=== PATIENT | female | born 1940 | race Caucasian/White ===

== ENCOUNTER 2016-12-09 23:07 | Observation (INO) ==
[2016-12-10] MEDS ORDERED: ALPRAZolam 0.5 MG TABLET PO ONE (01:47)
[2016-12-10] MEDS ORDERED: ALPRAZolam 0.5 MG TABLET PO PRN (05:27)
--- NOTE | 2016-12-10 05:40 | Internal Med History&Physical ---
Date of Encounter: 12/10/16 Time of Encounter: 05:37 Assessment and Plan (1) Rheumatoid arthritis Current visit: Yes Status: Acute She is on immunosuppressive medications. Qualifiers: Qualified Code(s): M06.9 - Rheumatoid arthritis, unspecified (2) Hypokalemia Current visit: Yes Status: Acute With custom 3.2 at [facility] emergency room. Would recheck potassium and magnesium and replace accordingly. (3) GERD (gastroesophageal reflux disease) Current visit: Yes Status: Acute PPI Qualifiers: Qualified Code(s): K21.9 - Gastro-esophageal reflux disease without esophagitis (4) Atrial fibrillation with rapid ventricular response Current visit: No Status: Acute Ralph-vASC score at least 4 for age being 76, hypertension, and female sex. She also mentioned that she had valvular disease. Patient will be started on photos Lovenox. She will be a candidate for long-term anticoagulation for stroke prophylaxis. She denies history of falls or G.I. bleed. WILL check echocardiogram. Internal Medicine - H&P: HPI Chief complaint: palpitations History of present illness: Ms. Castillo is a 76 year old female who presents to the emergency room at [facility] with a complete of palpitations. At approximately 6 PM patient started noticing palpitations which she describes as rapid and irregular. These palpitations lasted for approximately 3 hours until 9 PM without resolution so she went to emergency room for further management. She had similar episodes before but will last for shorter durations. She was found in [facility] emergency room to be atrial fibrillation with rapid ventricular response. She was given a dose of Cardizem after which she had spontaneous samaritan of sinus rhythm. Patient denies any chest pain. No recent febrile illness. No diarrhea vomiting. Mentioned that she had the named program about 4 years ago showed no significant blockages. Patient has a history of hypertension is 76 years old. She mentioned also that she has valvular disease to valves are leaky. Denies history of falls or prior G.I. bleeding Past Med Surg Social Fam HX - Past Medical History Medical history: arthritis, coronary artery disease, fibromyalgia, GERD, hyperlipidemia, hypertension, osteoporosis, RA, valvular heart disease, other Psychiatric history: anxiety - Past Surgical History Surgical History: orthopedic, other - Social History Smoking Status: Never smoker Smokeless Tobacco Status: No Alcohol use: none Drug use: none - Family History Mother Hx Family Cardiac Disorders: Yes Hx Family Cancer: Yes (vaginal) Internal Medicine - H&P: Meds ALPRAZolam [Xanax 0.5 MG Tablet] 0.5 mg PO BID PRN 11/16/14 [History] Aspirin Enteric Coated [Aspirin EC] 81 mg PO DAILY 11/16/14 [History] Cyanocobalamin (Vitamin B-12) [Vitamin B-12] 1,000 mcg PO HS 11/16/14 [History] Etanercept [Enbrel] 50 mg SQ QWEEK 11/16/14 [History] Folic Acid 1 mg PO DAILY 11/16/14 [History] Hydrochlorothiazide 25 mg PO DAILY 11/16/14 [History] Ibuprofen [Motrin] 800 mg PO Q8HR PRN 11/16/14 [History] Lisinopril [Zestril] 20 mg PO DAILY 11/16/14 [History] Methotrexate [Otrexup] 15 mg PO QWEEK 11/16/14 [History] Metoprolol XL (24 HR) Succ [Toprol XL] 50 mg PO HS 11/16/14 [History] Multivitamin [Multi-Day Vitamins] 1 each PO DAILY 11/16/14 [History] Pantoprazole Sodium 40 mg PO HS 11/16/14 [History] Pravastatin Sodium [Pravachol] 40 mg PO HS 11/16/14 [History] 3 Allergy/AdvReac Type Severity Reaction Status Date / Time cod liver oil Allergy Unconscious Verified 12/09/16 22:02 hydrocodone Allergy Hallucinati Verified 12/09/16 22:02 ng Penicillins [PCN] Allergy Hives Verified 12/09/16 22:02 Sulfa (Sulfonamide Allergy See Verified 12/09/16 22:02 Antibiotics) Comments Erythromycin Base AdvReac Nausea Verified 12/09/16 22:02 All Systems PM: A 10-system review of systems was performed and is negative for pertinent findings except as documented above in the HPI. Review of systems: 10 point review of systems is negative except for HPI - Constitutional Vitals: Temp Pulse Resp BP Pulse Ox 97.6 F 63 16 100/67 96 12/10/16 03:19 12/10/16 03:19 12/10/16 03:19 12/10/16 03:19 12/10/16 03:19 Exam: Gen.: patient is alert oriented times 3 cardiac: normal S1 S2 no additional sounds or murmurs chest: no active wheezing or bronchial breathing abdomen soft nontender nondistended normal bowel sounds lower extremity no swelling. Neuro: no new focal deficits
[2016-12-10 05:47] LABS: Basophils # 0.1 K/mcL (0.0-0.2); Basophils % 1.1 %; Eosinophils # 0.2 K/mcL (0.0-0.6); Eosinophils % 3.4 %; Hematocrit 38.9 % (35.3-44.9); Hemoglobin 12.9 g/dL (11.5-15.4); Immature Granulocytes % 0.1 % (0-4); Lymphocytes # 2.4 K/mcL (0.6-4.6); Lymphocytes % 34.7 %; Mean Corpuscular HGB Conc 33.2 g/dL (31.6-35.5); Mean Corpuscular Volume 90.5 fL (83.0-100.0); Mean Platelet Volume 9.6 fL (9.4-12.4); Monocytes # 0.7 K/mcL (0.0-1.3); Neutrophils # 3.5 K/mcL (1.6-8.9); Platelet Count 162 K/mcL (140-400); Red Cell Distribution Width 14.1 % (11.5-14.5); Segmented Neutrophils % 50.7 %
[2016-12-10] MEDS ORDERED: *HR* Enoxaparin 60 MG/0.6 ML SYRINGE SQ SCH (06:00)
[2016-12-10 06:23] LABS: Thyroid Stimulating Hormone 6.388 mcIU/mL (0.350-4.840)
--- NOTE | 2016-12-10 08:33 | Discharge Summary ---
Date of Encounter: 12/10/16 Time of Encounter: 07:40 - Discharge Diagnosis (1) Atrial fibrillation with rapid ventricular response Priority: Primary Status: Acute Comments: New onset a-fib RVR. Pt converted with 15mg Cardizem bolus in the ED prior to arrival. Apical is regular, S1S2 heard. Monitor NSR. Pt denies symptoms other than feeling her heart racing. She states that she has had this in the past, but it stopped and she has never had a diagnosis. Echo with LVEF 60-65%, mild LVDD mild-moderate AR and TR. Pt will be seen by cardiology and stress test in a.m. Starting on Eliquis tonight. Pt was given Lovenox 60mg SQ BID in hospital. Will send pt home on Eliquis. Pt will need to follow up with PCP. (2) Rheumatoid arthritis Priority: Secondary Status: Chronic Comments: Pt is on Methotrexate and Enbrel. Follow with PCP and specialist as scheduled. Qualifiers: Rheumatoid arthritis location: unspecified site Rheumatoid factor presence : unspecified presence Qualified Code(s): M06.9 - Rheumatoid arthritis, unspecified (3) Hypokalemia Priority: Secondary Status: Acute Comments: 3.3 on arrival. Treated with 20meq Potassium Chloride BID. (4) GERD (gastroesophageal reflux disease) Priority: Secondary Status: Chronic Comments: Chronic. Continue Pantoprazole at discharge. Qualifiers: Esophagitis presence: esophagitis presence not specified Qualified Code(s) : K21.9 - Gastro-esophageal reflux disease without esophagitis (5) Elevated TSH Priority: Secondary Status: Acute Comments: Mildly elevated at 6.388. Pt has no history of thyroid disease. She does have RA , which could alter lab values. Recommend follow up with PCP. (6) DVT prophylaxis Priority: Secondary Status: Acute Comments: Pt is receiving Lovenox for anticoagulation for paroxysmal a-fib. - Discharge Medications Home Medications: ALPRAZolam [Xanax 0.5 MG Tablet] 0.5 mg PO BID PRN 11/16/14 [History] Aspirin Enteric Coated [Aspirin EC] 81 mg PO DAILY 11/16/14 [History] Cyanocobalamin (Vitamin B-12) [Vitamin B-12] 1,000 mcg PO HS 11/16/14 [History] Etanercept [Enbrel] 50 mg SQ QWEEK 11/16/14 [History] Folic Acid 1 mg PO DAILY 11/16/14 [History] Hydrochlorothiazide 25 mg PO DAILY 11/16/14 [History] Ibuprofen [Motrin] 800 mg PO Q8HR PRN 11/16/14 [History] Lisinopril [Zestril] 20 mg PO DAILY 11/16/14 [History] Methotrexate [Otrexup] 15 mg PO QWEEK 11/16/14 [History] Metoprolol XL (24 HR) Succ [Toprol XL] 50 mg PO HS 11/16/14 [History] Multivitamin [Multi-Day Vitamins] 1 each PO DAILY 11/16/14 [History] Pantoprazole Sodium 40 mg PO HS 11/16/14 [History] Pravastatin Sodium [Pravachol] 40 mg PO HS 11/16/14 [History] Allergies/Adverse Reactions: 3 Allergy/AdvReac Type Severity Reaction Status Date / Time cod liver oil Allergy Unconscious Verified 12/09/16 22:02 hydrocodone Allergy Hallucinati Verified 12/09/16 22:02 ng Penicillins [PCN] Allergy Hives Verified 12/09/16 22:02 Sulfa (Sulfonamide Allergy See Verified 12/09/16 22:02 Antibiotics) Comments Erythromycin Base AdvReac Nausea Verified 12/09/16 22:02 Procedures/tests Complete & Pending: Procedures Performed prior 72 hours Category Date Time Status EV echocardiogram Routine Y 12/10/16 05:43 Ordered Date of admission: 12/10/16 00:42 Primary care physician: Froylan Lubin MD Discharging clinician: Cici Paul Anticipated date of discharge: 12/10/16 - Patient Status Disposition: Home, Self-Care Condition: Good Functional capacity at discharge: independent ambulation Overall status at discharge: patient is back to baseline - Discharge Instructions Follow Up With: Froylan Lubin MD [Primary Care Provider] - 12/15/16 2:30 pm Additional Instructions: Follow up with your PCP in the next 7-10 days for a follow up visit. REturn to the ER if your symptoms return or worsen, or for any other problems or concerns. Take your medications as directed and continue your other home medications. Return to your normal activities as tolerated. - Diet and Activity Activity: increase activity as tolerated Diet: advance to your usual diet Hospital course: Ms. Castillo is a 76 year old female - Time Spent with Patient Total time spent providing and/or coordinating discharge services: - Constitutional Vitals: Temp Pulse Resp BP Pulse Ox 98 F 58 13 124/71 97 12/10/16 07:23 12/10/16 07:23 12/10/16 07:23 12/10/16 07:23 12/10/16 07:23 General appearance: Present: cooperative, A&O X 3, pleasant, no acute distress, answers questions appropriately - Head Head exam: Present: atraumatic, normal inspection, normocephalic - Eye Eye exam: Present: conjuntiva pink, sclera anicteric - Neck Neck exam general surgery: Present: supple, trachea midline. Absent: lymphadenopathy, tenderness - Expanded Neck Exam Neck exam: Absent: carotid bruit, tenderness, thyroid mass - Respiratory Respiratory exam: Present: CTAB. Absent: accessory muscle use, rales, rhonchi, wheezes - Cardiovascular Cardiovascular exam: Present: RRR, +S1, +S2. Absent: diastolic murmur, gallop, rubs, systolic murmur - GI/Abdominal GI/Abdominal exam: Present: normal bowel sounds, soft, no peritoneal signs. Absent: distended, hepatomegaly, tenderness - Extremities Exam Extremities exam: Present: normal inspection, warm, radial pulses palpable and symmetrical. Absent: calf tenderness, cyanotic, pedal edema, tenderness - Neurological Exam Neurological exam: Present: alert, oriented X3, no focal deficits. Absent: facial droop, speech deficit - Skin Skin exam: Present: dry, intact, normal color, warm. Absent: rash
[2016-12-10] MEDS: Aspirin Enteric Coated 81 MG Tablet PO SCH (09:35)
[2016-12-10] MEDS: Folic Acid 1 MG TABLET PO SCH (09:35)
--- NOTE | 2016-12-10 15:10 | Cardiology Consult Note ---
<Zahida Jose - Last Filed: 12/10/16 15:28> Date of Encounter: 12/10/16 Time of Encounter: 14:00 Assessment and Plan (1) Paroxysmal a-fib Status: Acute Per cardiology: -No known history of a.fib. -Reprots intermittent high HR for years. -A.fib RVR on arrival, given cardizem bolus and converted to SR. -Telemetry with average HR 62, sinus rhythm. -On toprol 50mg daily. -Echo with LVEF 60-65%, mild diastolic dysfunction, mild-moderate AR, mild- moderate TR, all crawford with normal motion. -[id number] score 4 (age, HTN, female). Recommend terminal gauger supervisor anticoagulation. Patient agreeable to anticoagulation. Denies active bleeding or blood loss. -Reports snoring. Denies previous sleep apnea studies. -Can consider outpatient follow up with electrophysiology, Dr.John Sullivan, for possible further interventions for atrial fibrillation. -Will check overnight trending pulse ox. -Will check non--exercise nuclear stress test in am for possible use of anti- arrhythmics (known previous mild CAD). NPO after midnight. -Per discussion with , will start eliquis 5mg po BID. Will start tonight. Eliquis being jordan checked. -Will continue to monitor. Discussion w patient/family: The assessment and plan as outlined above was discussed with the patient who expressed understanding and agreement. All questions were answered. Thank you for involving us in the care of your patient. Please call with any questions. Discussed and reviewed with . History of Present Illness Consult date: 12/10/16 Requesting physician: Cici Paul Consult reason: new atrial fibrillation Chief complaint: racing heart rate History of present illness: Ms. Castillo is a 76 year old female with a relevant past medical history of HTN, mild CAD, sinus tachycardia, RA, and hyperlipidemia. Patient presented to [facility] with complaints of rapid heart rate. Patient states she has had intermittent tachycardia for years, however patient states she was always told it was sinus tachycardia. Patient states her typically episodes of high heart rates last for a few minutes and then subside, however this episode lasted a few hours. Upon presentation to [place], she was not to be in atrial fibrillation with RVR. Patient was given IV cardizem and converted to SR. Patient was admitted to [facility]. Patient denies palpitations overnight. Patient denies chest pain. Patient denies shortness of breath or fatigue. Patient admits to snoring and awakening at night. Past Med Surg Social Fam HX - Past Medical History Attestation: Yes The following information was validated with the patient. Source: patient, old records reviewed Medical history: arthritis, coronary artery disease, fibromyalgia, GERD, hyperlipidemia, hypertension, osteoporosis, RA, valvular heart disease, other Psychiatric history: anxiety - Past Surgical History Surgical History: orthopedic, other - Social History Smoking Status: Never smoker Smokeless Tobacco Status: No Alcohol use: none Drug use: none - Family History Mother Hx Family Cardiac Disorders: Yes Hx Family Cancer: Yes (vaginal) Medications and Allergies ALPRAZolam [Xanax 0.5 MG Tablet] 0.5 mg PO BID PRN 11/16/14 [History] Aspirin Enteric Coated [Aspirin EC] 81 mg PO DAILY 11/16/14 [History] Cyanocobalamin (Vitamin B-12) [Vitamin B-12] 1,000 mcg PO HS 11/16/14 [History] Etanercept [Enbrel] 50 mg SQ QWEEK 11/16/14 [History] Folic Acid 1 mg PO DAILY 11/16/14 [History] Hydrochlorothiazide 25 mg PO DAILY 11/16/14 [History] Ibuprofen [Motrin] 800 mg PO Q8HR PRN 11/16/14 [History] Lisinopril [Zestril] 20 mg PO DAILY 11/16/14 [History] Methotrexate [Otrexup] 15 mg PO QWEEK 11/16/14 [History] Metoprolol XL (24 HR) Succ [Toprol XL] 50 mg PO HS 11/16/14 [History] Multivitamin [Multi-Day Vitamins] 1 each PO DAILY 11/16/14 [History] Pantoprazole Sodium 40 mg PO HS 11/16/14 [History] Pravastatin Sodium [Pravachol] 40 mg PO HS 11/16/14 [History] Apixaban [Eliquis] 5 mg PO BID #30 tablet 12/11/16 [Rx] 3 Allergy/AdvReac Type Severity Reaction Status Date / Time cod liver oil Allergy Unconscious Verified 12/09/16 22:02 hydrocodone Allergy Hallucinati Verified 12/09/16 22:02 ng Penicillins [PCN] Allergy Hives Verified 12/09/16 22:02 Sulfa (Sulfonamide Allergy See Verified 12/09/16 22:02 Antibiotics) Comments Erythromycin Base AdvReac Nausea Verified 12/09/16 22:02 All Systems Review: A 10-system review of systems was performed and is negative for pertinent findings except as documented above in the HPI. - Cardiovascular Cardiovascular: as per HPI, rapid heart rate Physical Examination Vital Signs, Last 4 Hours Temp Pulse Resp BP Pulse Ox 12/10/16 11:05 97.7 F 61 18 108/62 97 General: Conversant, No Apparent Distress HEENT: Atraumatic, Normocephaly, Mucus Membranes Moist Neck: No JVD, Normal carotid pulses Cardiac: Reg Rate and Rhythm, Normal S1 and S2, No Murmur Lungs: Normal Breath Sounds, No Wheeze, Rales, Rhonchi Neuro: Alert and responsive, No focal deficits noted Abdomen: Soft, Non-Tender Skin: No rashes noted on visualized skin Musculoskeletal: No Chest Wall Tenderness Extremities: No Clubbing, No Cyanosis, No Edema, Normal Pulses Results 12/10/16 05:35 Lab Results Impressions Echocardiogram 12/10/16 05:43 Impressions: LVEF 60-65%. Normal LV chamber size, wall thickness and function. Mild left ventricular diastolic dysfunction. Normal right ventricular structure and function. Mild-moderate aortic regurgitation. Mild-moderate tricuspid regurgitation. No pulmonary hypertension. Left Ventricular Wall Motion: Rest Echo Findings All wall segments showed normal motion. Findings: Study Quality * Technically adequate exam. ECG Findings * Normal sinus rhythm. Left Ventricle * LVEF 60-65%. * Normal LV chamber size, wall thickness and function. * Mild left ventricular diastolic dysfunction. Right Ventricle * Normal right ventricular structure and function. Left Atrium * Mild to moderately dilated left atrium. Right Atrium * Mildly dilated right atrium. Interatrial Septum * No evidence of PFO by color Doppler. Aortic Valve * Trileaflet aortic valve. * Mild-moderate aortic regurgitation. * No aortic stenosis. Mitral Valve * Normal mitral valve structure and function. * No mitral stenosis. * Trace mitral regurgitation. Tricuspid Valve * Normal tricuspid valve structure. * Mild-moderate tricuspid regurgitation. * No pulmonary hypertension. Pulmonic Valve * Normal pulmonic valve structure and function. * Trace pulmonic regurgitation. Aorta * Normally sized aortic root. Pericardium * The pericardium appears normal. IVC * Normal IVC dimensions and inspiratory collapse. Pulmonary Artery * Normal visualized portions of the main pulmonary artery. Active Medications Alprazolam (Xanax) 0.5 mg PO BID PRN; Protocol PRN Reason: Anxiety Stop: 06/11/17 05:28 Aspirin (Aspirin Ec) 81 mg PO DAILY [facility] Stop: 06/11/17 09:01 Last Admin: 12/10/16 09:35 Dose: 81 mg Cyanocobalamin (Vitamin B12) 1,000 mcg PO HS [facility] Stop: 06/11/17 21:01 Enoxaparin Sodium (Lovenox) 60 mg SQ Q12HCO [facility] PRN Reason: Protocol Stop: 06/11/17 06:01 Last Admin: 12/10/16 05:46 Dose: Not Given Folic Acid (Folic Acid) 1 mg PO DAILY [facility] Stop: 06/11/17 09:01 Last Admin: 12/10/16 09:35 Dose: 1 mg Metoprolol Succinate (Toprol Xl) 50 mg PO HS [facility] Stop: 06/11/17 21:01 Omeprazole (Prilosec) 20 mg PO HS [facility] Stop: 06/11/17 21:01 Potassium Chloride (Potassium Chloride) 20 meq PO BID [facility] Stop: 06/11/17 09:01 Last Admin: 12/10/16 09:35 Dose: 20 meq Simvastatin (Zocor) 20 mg PO HS [facility] Stop: 06/11/17 21:01 Laboratory Tests 12/09/16 12/09/16 12/10/16 21:44 21:44 05:35 Hgb 12.9 D Plt Count 162 Potassium 3.3 L Creatinine 1.09 Troponin I 0.00 TSH 12/10/16 12/10/16 12/10/16 05:35 05:35 10:41 Hgb Plt Count Potassium Creatinine Troponin I 0.01 0.00 TSH 6.388 H - Imaging and Cardiology Chest Xray: report reviewed Stress Test: report reviewed Echo: report reviewed Cardiac cath: report reviewed - EKG Interpretation EKG results cardiology: personally reviewed (ECG reviewed with atrial fibrillation RVR, HR 158.), other (Telemetry reviewed with average HR previous 12 hours noted to be 62, sinus rhythm. PACs noted. 1 three beat run of atrial tachycardia noted.) Consult Discharge Plan - Plan Instructions: Influenza Virus Vaccine (Injection), Atrial Fibrillation (DC) Additional Instructions: Follow up with your PCP in the next 7-10 days for a follow up visit. REturn to the ER if your symptoms return or worsen, or for any other problems or concerns. Take your medications as directed and continue your other home medications. Return to your normal activities as tolerated. Referrals: Froylan Lubin MD [Primary Care Provider] - 12/15/16 2:30 pm Prescriptions: Apixaban [Eliquis] 5 mg PO BID #30 tablet <Montana Hawley - Last Filed: 12/11/16 14:50> Date of Encounter: 12/10/16 Time of Encounter: 17:00 Assessment and Plan Discussion w patient/family: The assessment and plan as outlined above was discussed with the patient and/or family members who expressed understanding and agreement. All questions were answered. Thank you for involving us in the care of your patient. Please call with any questions. History of Present Illness History of present illness: Ms. Castillo is a 76 year old female All Systems Review: A 10-system review of systems was performed and is negative for pertinent findings except as documented above in the HPI. Physical Examination Vital Signs, Last 4 Hours Temp Pulse Resp BP Pulse Ox 12/11/16 11:18 97.9 F 64 16 139/68 98 Results 12/11/16 02:34 12/11/16 02:34 Lab Results 12/10/16 12/11/16 12/11/16 05:35 02:34 02:34 WBC 5.4 Hgb 12.7 Hct 39.8 Plt Count 172 Sodium 139 143 Potassium 3.8 4.3 Chloride 107 110 H Carbon Dioxide 25 28 BUN 13 17 Creatinine 1.01 1.16 H Glucose 100 H 99 Calcium 9.4 9.6 Magnesium 1.9 TSH 6.388 H - Attending Attestation Pt seen and examined independently, chart reviewed, essentially agree with documented findings, my evalutation as follows IMP/Plan 1. A fib with RVR - converted in ER with IV bolus diltiazem, has maintained NSR since admission. Hx papitations on and off for several years, able to document SVT, but no previous A fib. This event longest lasting, was over three hours until she converted with IV diltiazem in ER. She reports is compliant with medications. Long conversation about risks of PAF, in particular stroke risk, agrees to trial of Eliquis. Will monitor heart rhythm overnight with increased activity, stress in AM to rule out ischemic substrate 2. Insomnia; Pt reports very difficult time getting too and staying asleep. Symptoms concerning for undiagnosed SHENG, will obtain screening nocturnal pulse ox tonight on room air.
[2016-12-10] MEDS ORDERED: Cyanocobalamin (B-12) 1,000 MCG TABLET PO SCH (21:00)
[2016-12-10] MEDS ORDERED: Metoprolol XL (24 HR) Succ 50 MG TAB.ER.24H PO SCH (21:00)
[2016-12-10] MEDS: APIXABAN 5 MG TABLET PO SCH (21:15)
[2016-12-11 03:22] LABS: Basophils # 0.1 K/mcL (0.0-0.2); Basophils % 1.1 %; Eosinophils # 0.4 K/mcL (0.0-0.6); Eosinophils % 6.5 %; Hematocrit 39.8 % (35.3-44.9); Hemoglobin 12.7 g/dL (11.5-15.4); Immature Granulocytes % 0.2 % (0-4); Lymphocytes # 2.2 K/mcL (0.6-4.6); Lymphocytes % 40.6 %; Mean Corpuscular HGB Conc 31.9 g/dL (31.6-35.5); Mean Corpuscular Hemoglobin 29.5 pg (28.0-33.3); Mean Corpuscular Volume 92.3 fL (83.0-100.0); Mean Platelet Volume 9.8 fL (9.4-12.4); Monocytes # 0.7 K/mcL (0.0-1.3); Monocytes % 13.8 %; Platelet Count 172 K/mcL (140-400); Red Blood Count 4.31 M/mcL (3.82-4.97); Segmented Neutrophils % 37.8 %
[2016-12-11 03:31] LABS: Calcium 9.6 mg/dL (8.6-10.8); Chol/HDL Ratio 5.3 (0-4.9); Potassium 4.3 mEq/L (3.5-4.5)
[2016-12-11] MEDS ORDERED: Regadenoson 0.4 MG/5 ML SYRINGE IVP ONE (05:41)
[2016-12-11] MEDS ORDERED: 0.9 % Sodium Chloride 1,000 ML IVC SCH (07:30)
[2016-12-11 08:09] LABS: BUN/Creatinine Ratio 13 (6-26); Blood Urea Nitrogen 13 mg/dL (7-20); Calcium 9.4 mg/dL (8.6-10.8); Carbon Dioxide 25 mEq/L (19-29); Chloride 107 mEq/L (98-109); Creatine Kinase 69 Units/L (29-168); Glucose 100 mg/dL (70-99); Magnesium 1.9 mg/dL (1.6-2.6); Osmolality,Calculated 288 (280-300); Potassium 3.8 mEq/L (3.5-4.5); Sodium 139 mEq/L (136-145); eGFR For African Americans > 60 (> 60); eGFR For Non-African Americans 53 (> 60)
[2016-12-11] MEDS: Folic Acid 1 MG TABLET PO SCH (10:07)
[2016-12-11] MEDS: APIXABAN 5 MG TABLET PO SCH (10:07)
[2016-12-11] MEDS: Aspirin Enteric Coated 81 MG Tablet PO SCH (10:07)
--- NOTE | 2016-12-11 11:12 | Nuclear Medicine Stress Report ---
Regadenoson Nuclear Stress Name: Rosio Castillo Date of Study: 12/11/2016 Date: 1940 Ht: 61.0 in Medical Record#: [id number] Age: 76 Wt: 143.0 lb Gender: Female Order #: [id number] Location: [facility] Room: [facility] Supervising Provider: Zahida Jose CNP Reading Physician: Jaleel Lala MD, [facility] Ordering Physician: Cici Paul CNP Stress Technologist: Terrie Boudreaux VENDING STAND SUPERVISOR, [facility] Tailing Machine Operator: Tara Mendoza Indications: Chest Pain Impression: Perfusion imaging was negative for ischemia or infarct. Pharmacologic ECG was non diagnostic for ischemia. Baseline LVH with strain pattern mildly worsened with stress. Patient had no chest pain with stress. Normal hemodynamic response. No arrhythmias noted with stress. Gated EF = >70%. The LV is not dilated. There is no evidence of TID. History: Hypertension Hypercholesteremia Stress Test Summary: Stress Test Type: Pharmacologic Regadenoson 0.4mg/5ml given IV Baseline Information: Initial Heart Rate: 64 Blood Pressure: 136/72 Stress Information: Test Terminated Due to (primary): As per protocol Maximum Blood Pressure: 142/80 Maximum Heart Rate: 99 Percent Maximum Heart Rate Achieved: 73 Double Product: 13768 METS Reached: 10 Symptoms: No chest symptoms Nuclear Summary: SPECT myocardial perfusion imaging using Tc99m Sestamibi given intravenously was performed at rest and following cardiac stress testing. The resting images were obtained following initial dose of 10.2 mCi. Following stress an additional dose of 35.0 mCi was given at peak exercise or 30 seconds post regadenoson infusion. Medication Given: Time Medication Dose Units Route Findings: STUDY QUALITY * STUDY QUALITY Study Quality * Study quality is average. Gated EF > 70% * Gated EF > 70%. Left Ventricle * The left ventricle is not dilated. NORMALS * Normal wall motion. * Normal segmental perfusion in stress. * Normal Segmental Perfusion in rest. TID * No evidence of transient ischemic dilatation. Stress Note * Resting ECG demonstrated normal sinus rhythm, LVH with strain pattern * No baseline arrhythmias were noted. * Pharmacologic stress ECG is non diagnostic for ischemia due to failure to reach target heartrate. * There was LVH with strain pattern mildly worsened mm of } ST . * No chest pain or arrhythmias during stress. Hemodynamic responses * Normal hemodynamic responses to pharmacologic stress. Updated by Jaleel Lala MD, FACC on 12/11/2016 11:00:40 AM electronically signed on 12/11/2016 11:05:38 AM with status of Final
[2016-12-11 11:19] VITALS: BP 139/68
--- NOTE | 2016-12-11 13:40 | Discharge Summary ---
Date of Encounter: 12/11/16 Time of Encounter: 13:30 - Discharge Diagnosis (1) Atrial fibrillation with rapid ventricular response Priority: Primary Status: Resolved Comments: Pt converted with 15mg bolus of Cardizem in the ER prior to arrival at [facility]. Pt has been NSR since. Pt will be on Eliquis after discharge. (2) Rheumatoid arthritis Priority: Secondary Status: Chronic Comments: Continue treatment with fabrication technician after discharge. Continue home medications. Qualifiers: Rheumatoid arthritis location: unspecified site Rheumatoid factor presence : unspecified presence Qualified Code(s): M06.9 - Rheumatoid arthritis, unspecified (3) Hypokalemia Priority: Secondary Status: Resolved (4) GERD (gastroesophageal reflux disease) Priority: Secondary Status: Chronic Comments: Continue your normal home medications. Qualifiers: Esophagitis presence: esophagitis presence not specified Qualified Code(s) : K21.9 - Gastro-esophageal reflux disease without esophagitis (5) Elevated TSH Priority: Secondary Status: Acute Comments: RA factors may affect TSH levels, follow with rheumatology for any necessary medication adjustments. (6) DVT prophylaxis Priority: Secondary Status: Acute - Discharge Medications Prescriptions: Apixaban [Eliquis] 5 mg PO BID #30 tablet Home Medications: ALPRAZolam [Xanax 0.5 MG Tablet] 0.5 mg PO BID PRN 11/16/14 [History] Aspirin Enteric Coated [Aspirin EC] 81 mg PO DAILY 11/16/14 [History] Cyanocobalamin (Vitamin B-12) [Vitamin B-12] 1,000 mcg PO HS 11/16/14 [History] Etanercept [Enbrel] 50 mg SQ QWEEK 11/16/14 [History] Folic Acid 1 mg PO DAILY 11/16/14 [History] Hydrochlorothiazide 25 mg PO DAILY 11/16/14 [History] Ibuprofen [Motrin] 800 mg PO Q8HR PRN 11/16/14 [History] Lisinopril [Zestril] 20 mg PO DAILY 11/16/14 [History] Methotrexate [Otrexup] 15 mg PO QWEEK 11/16/14 [History] Metoprolol XL (24 HR) Succ [Toprol XL] 50 mg PO HS 11/16/14 [History] Multivitamin [Multi-Day Vitamins] 1 each PO DAILY 11/16/14 [History] Pantoprazole Sodium 40 mg PO HS 11/16/14 [History] Pravastatin Sodium [Pravachol] 40 mg PO HS 11/16/14 [History] Apixaban [Eliquis] 5 mg PO BID #30 tablet 12/11/16 [Rx] Allergies/Adverse Reactions: 3 Allergy/AdvReac Type Severity Reaction Status Date / Time cod liver oil Allergy Unconscious Verified 12/09/16 22:02 hydrocodone Allergy Hallucinati Verified 12/09/16 22:02 ng Penicillins [PCN] Allergy Hives Verified 12/09/16 22:02 Sulfa (Sulfonamide Allergy See Verified 12/09/16 22:02 Antibiotics) Comments Erythromycin Base AdvReac Nausea Verified 12/09/16 22:02 Procedures/tests Complete & Pending: Procedures Performed prior 72 hours Category Date Time Status NM todd perf SPECT multi [NM] Routine Exams 12/10/16 14:44 Taken EV echocardiogram Routine Y 12/10/16 05:43 Completed SP pharm nuclear stress Routine Y 12/11/16 06:00 Completed Date of admission: 12/10/16 00:42 Primary care physician: Froylan Lubin MD Consults: 12/10/16 13:42 Consult to Cardiology [CONS] Routine Comment: Consulting Provider: [facility] [place] Reason for Consult: New onset a-fib RVR, converted with Cardizem bolus. Echo shows MR and TR. Time Notified: 13:43 Call Completed: Yes Discharging clinician: Cici Paul Anticipated date of discharge: 12/11/16 - Patient Status Disposition: Home, Self-Care Functional capacity at discharge: independent ambulation Overall status at discharge: patient is back to baseline - Discharge Instructions Follow Up With: Froylan Lubin MD [Primary Care Provider] - 12/15/16 2:30 pm Additional Instructions: Follow up with your PCP in the next 7-10 days for a follow up visit. REturn to the ER if your symptoms return or worsen, or for any other problems or concerns. Take your medications as directed and continue your other home medications. Return to your normal activities as tolerated. - Diet and Activity Activity: increase activity as tolerated Diet: advance to your usual diet Hospital course: Ms. Castillo is a 76 year old female with past medical history of rheumatoid arthritis, coronary artery disease, fibromyalgia, GERD, hyperlipidemia, hypertension, anxiety. She was transferred to our emergency department from [place] with new onset A. fib RVR. She converted in the emergency department with a bolus of 15 mg of Cardizem and has remained normal sinus since. She was seen by cardiology due to valvular dysfunction on the echo. She has been placed on Eliquis 5 mg by mouth twice a day. Echo with an LVEF of 6065%, mild LV DD, mild to moderate AR, [id number] TR. Stress test was negative. Patient currently denies chest pain, shortness of breath, nausea, vomiting, headache, blurred vision. She also denies this things during the A. fib RVR episode. She reports that she only has symptoms of racing heart rate and went to the emergency room because it would not stop. She has had this in the past however it stopped on its own. I have made no other medication changes, she will continue on the anticoagulation and follow-up with cardiology outpatient. Her physical exam is unremarkable again, she denies chest pain or shortness of breath, nausea, vomiting, diaphoresis. Her labs within normal limits other than a very mild acute kidney injury with a serum creatinine of 1.61 and a GFR 46. This will resolve with increased by mouth fluid intake. Patient is aware of this and agrees. Vital signs are stable and within normal limits. Patient has normal sinus on the monitor, S1-S2 are heard with regular rate and rhythm no gallops, clicks, murmurs no tachycardia and no bradycardia. Her pressure is well controlled. Patient is ready for discharge. - Time Spent with Patient Total time spent providing and/or coordinating discharge services: Less than 30 minutes - Constitutional Vitals: Temp Pulse Resp BP Pulse Ox 97.9 F 64 16 139/68 98 12/11/16 11:18 12/11/16 11:18 12/11/16 11:18 12/11/16 11:18 12/11/16 11:18 General appearance: Present: cooperative, A&O X 3, pleasant, no acute distress, answers questions appropriately - Head Head exam: Present: atraumatic, normal inspection, normocephalic - Eye Eye exam: Present: normal appearance, conjuntiva pink, sclera anicteric - Neck Neck exam general surgery: Present: supple, trachea midline. Absent: lymphadenopathy, tenderness - Respiratory Respiratory exam: Present: CTAB. Absent: accessory muscle use, rales, rhonchi, wheezes - Cardiovascular Cardiovascular exam: Present: RRR, +S1, +S2. Absent: diastolic murmur, gallop, rubs, systolic murmur - GI/Abdominal GI/Abdominal exam: Present: normal bowel sounds, soft, no peritoneal signs. Absent: distended, hepatomegaly, tenderness - Extremities Exam Extremities exam: Present: normal capillary refill, warm, radial pulses palpable and symmetrical. Absent: calf tenderness, cyanotic, pedal edema - Neurological Exam Neurological exam: Present: alert, oriented X3, no focal deficits. Absent: facial droop, speech deficit - Skin Skin exam: Present: dry, intact, normal color, warm. Absent: rash
--- NOTE | 2016-12-11 14:08 | Cardiology Progress Note ---
Date of Encounter: 12/11/16 Time of Encounter: 14:06 Assessment and Plan (1) Paroxysmal a-fib Current Visit: Yes Status: Acute Per cardiology: -No known history of a.fib. -Reprots intermittent high HR for years. -A.fib RVR on arrival, given cardizem bolus and converted to SR. -Telemetry with average HR 63, sinus rhythm. -On toprol 50mg daily. -Echo with LVEF 60-65%, mild diastolic dysfunction, mild-moderate AR, mild- moderate TR, all [place] with normal motion. -[id number] score 4 (age, HTN, female). Recommend senior living anticoagulation. On eliquis. 30 day free card given to patient. -Reports snoring. Denies previous sleep apnea studies. -Can consider outpatient follow up with electrophysiology, Dr.John Sullivan, for possible further interventions for atrial fibrillation. -Inpateint overnight pulse ox, inconclusive due to patient did not sleep much. -Stress test negative for ischemia or infarct. -recommend outpatient sleep study. -Cardiology will sign off and will follow in outpatient setting. Follow up set. Discussion w patient/family: The assessment and plan as outlined above was discussed with the patient and family who expressed understanding and agreement. All questions were answered. Thank you for involving us in the care of your patient. Please call with any questions. Discussed and reviewed with . Subjective Principal diagnosis: a.fib Interval history: Patient states she feels well. Denies palpitations or fluttering overnight. Objective Vital Signs, Last 4 Hours Temp Pulse Resp BP Pulse Ox 12/11/16 11:18 97.9 F 64 16 139/68 98 General: Conversant, No Apparent Distress HEENT: Atraumatic, Normocephaly, Mucus Membranes Moist Neck: No JVD, Normal carotid pulses Cardiac: Reg Rate and Rhythm, Normal S1 and S2, No Murmur Lungs: Normal Breath Sounds, No Wheeze, Rales, Rhonchi Neuro: Alert and responsive, No focal deficits noted Abdomen: Soft, Non-Tender Skin: No rashes noted on visualized skin Musculoskeletal: No Chest Wall Tenderness Extremities: No Clubbing, No Cyanosis, No Edema, Normal Pulses Results 12/11/16 02:34 12/11/16 02:34 Lab Results Active Medications Alprazolam (Xanax) 0.5 mg PO BID PRN; Protocol PRN Reason: Anxiety Stop: 06/11/17 05:28 Apixaban (Eliquis) 5 mg PO BID [facility] Stop: 06/11/17 21:01 Last Admin: 12/11/16 10:07 Dose: 5 mg Aspirin (Aspirin Ec) 81 mg PO DAILY [facility] Stop: 06/11/17 09:01 Last Admin: 12/11/16 10:07 Dose: 81 mg Cyanocobalamin (Vitamin B12) 1,000 mcg PO HS [facility] Stop: 06/11/17 21:01 Last Admin: 12/10/16 21:15 Dose: 1,000 mcg Folic Acid (Folic Acid) 1 mg PO DAILY [facility] Stop: 06/11/17 09:01 Last Admin: 12/11/16 10:07 Dose: 1 mg Sodium Chloride (0.9 % Sodium Chloride) 1,000 mls @ 50 mls/hr IVC .Q20H [facility] Stop: 06/12/17 07:31 Last Admin: 12/11/16 10:08 Dose: 50 mls/hr Metoprolol Succinate (Toprol Xl) 50 mg PO HS [facility] Stop: 06/11/17 21:01 Last Admin: 12/10/16 21:14 Dose: 50 mg Omeprazole (Prilosec) 20 mg PO HS [facility] Stop: 06/11/17 21:01 Last Admin: 12/10/16 21:15 Dose: 20 mg Potassium Chloride (Potassium Chloride) 20 meq PO BID [facility] Stop: 06/11/17 09:01 Last Admin: 12/11/16 10:07 Dose: 20 meq Simvastatin (Zocor) 20 mg PO HS [facility] Stop: 06/11/17 21:01 Last Admin: 12/10/16 21:15 Dose: 20 mg Laboratory Tests 12/10/16 12/11/16 12/11/16 05:35 02:34 02:34 Hgb 12.7 Creatinine 1.16 H TSH 6.388 H - Imaging and Cardiology Chest Xray: report reviewed Stress Test: report reviewed Echo: report reviewed - EKG Interpretation EKG results cardiology: other (Telemetry reviewed with average HR previous 12 hours noted to be 63, sinus rhythm. PVCs and PACs noted.) Consult Discharge Plan - Plan Additional Instructions: Follow up with your PCP in the next 7-10 days for a follow up visit. REturn to the ER if your symptoms return or worsen, or for any other problems or concerns. Take your medications as directed and continue your other home medications. Return to your normal activities as tolerated. Referrals: Froylan Lubin MD [Primary Care Provider] - 12/15/16 2:30 pm Prescriptions: Apixaban [Eliquis] 5 mg PO BID #30 tablet
[2016-12-13 10:18] LABS: CK-BB (CK isoenzymes) 0 % (0-0); CK-MB (CK isoenzymes) 0 % (0-4); CK-MM (CK-isoenzymes) 100 % (96-100)
[2016-12-13 10:18] LABS: CK-BB (CK isoenzymes) 0 % (0-0); CK-MB (CK isoenzymes) 0 % (0-4); CK-MM (CK-isoenzymes) 100 % (96-100)
[2016-12-14 08:11] LABS: CK Total (Ck Isoenzymes) 76 U/L (20-180)
[2016-12-14 08:11] LABS: CK Total (Ck Isoenzymes) 74 U/L (20-180)
== END 2016-12-11 14:38 | disposition home or self-care (01) ==
LOC: 3BNU
PROVIDERS: ADMIT Hospitalist; ATTEND Registered Nurse